=== PATIENT | male | born 1985 | race African-American/Black ===

== ENCOUNTER 2024-06-14 18:41 | Emergency (ER) | payer OTHER ==
[2024-06-14] MEDS: Pantoprazole 40 MG Tab.CR PO STA (21:23)
[2024-06-14] MEDS: predniSONE 20 MG Tab PO STA (21:24)
== END 2024-06-14 21:25 | disposition home or self-care (01) ==
LOC: MW.ED 18:41
DX: R91.1 Solitary pulmonary nodule (principal); R05.9 Cough, unspecified; F17.210 Nicotine dependence, cigarettes, uncomplicated; Z79.899 Other long term (current) drug therapy; Z75.8 Other problems related to medical facilities and other health care
CPT/HCPCS: 71046; 99283; A9270; 99284